=== PATIENT | female | born 1980 | race African-American/Black ===

== ENCOUNTER 2018-04-10 08:57 | Day surgery (SDC) | payer OTHER ==
[~2018-04-10 08:57] MED LIST: CARBOXYMETHYLCELLULOSE SOD 0.5% 0.4 ML DROPERETTE ONE; CEFAZOLIN 2 GM/D5W RTU 2 GM/50 ML RTUPB IV PRN; DEXAMETHASONE SOD PHOS INJ 10 MG/1 ML VIAL ONE; DEXMEDETOMIDINE INJ 80 MCG/20 ML VIAL IV ONE; FENTANYL CITRATE INJ/PF 100 MCG/2 ML AMPUL ONE; HYDROMORPHONE HCL INJ/PF 2 MG/ML AMPULE ONE; MIDAZOLAM 2 MG/2 ML INJ ONE; ONDANSETRON HCL INJ/PF 4 MG/2 ML SDV ONE; PROPOFOL INJ 200 MG/20 ML VIAL IV ONE; SUCCINYLCHOLINE CHLORIDE INJ 200 MG/10 ML VIAL ONE
[2018-04-10] MEDS ORDERED: SCOPOLAMINE HYDROBROMIDE 1.5 MG PATCH.TD72 TD PRN (10:07)
[2018-04-10] MEDS ORDERED: RINGERS SOLUTION,LACTATED 250 ML IV ONE (10:15)
[2018-04-10] MEDS ORDERED: MINERAL OIL (STERILE) 10 ML VIAL ONE (10:50)
[2018-04-10] MEDS ORDERED: BUPIVACAINE HCL 0.5%-EPI 1:200000 INJ/PF 30 ML VIAL ONE (10:51)
[2018-04-10] MEDS ORDERED: BUPIVACAINE HCL 0.5%/EPI 1:200000 INJ 1.8 ML CARTRIDGE ONE (10:51)
[2018-04-10] MEDS: OXYMETAZOLINE HCL 0.05% NASAL SPRAY 15 ML BOTTLE ONE ×2 (11:41→13:05)
[2018-04-10] MEDS ORDERED: OXYCODONE-ACETAMINOPHEN 5-325 MG TABLET ONE (15:53)
[2018-04-11] MEDS ORDERED: LACTATED RINGERS 1000 ML IV PRN (05:00)
[2018-04-11] MEDS ORDERED: LIDOCAINE 0.5% INJ-PF (5 MG/ML) 50 ML SDV SUBCUT PRN (05:00)
--- NOTE | 2018-04-12 21:35 | [facility] OPERATIVE REPORT E ---
[facility] Operative Report NAME: JUDAH QUIÑONES AGE: 38Y DATE OF SURGERY: 04/10/2018 ROOM: PREOPERATIVE DIAGNOSES: 1. SINONASAL POLYPOSIS/POLYP DISEASE. 2. CHRONIC NASAL DYSPNEA. 3. NASAL SEPTAL DEVIATION, ACQUIRED. 4. BILATERAL INFERIOR TURBINATE HYPERTROPHY. 5. BILATERAL MIDDLE TURBINATE HYPERTROPHY. 6. CHRONIC HYPOSMIA. POSTOPERATIVE DIAGNOSES: 1. SINONASAL POLYPOSIS/POLYP DISEASE. 2. CHRONIC NASAL DYSPNEA. 3. NASAL SEPTAL DEVIATION, ACQUIRED. 4. BILATERAL INFERIOR TURBINATE HYPERTROPHY. 5. BILATERAL MIDDLE TURBINATE HYPERTROPHY. 6. CHRONIC HYPOSMIA. OPERATION PERFORMED: 1. Image guidance functional endoscopic sinus surgery with bilateral transnasal rigid surgical endoscopy. 2. Bilateral transnasal passage polypectomies with tissue removal for pathology and via bilateral transnasal rigid surgical endoscopy. 3. Bilateral maxillary antrostomies with tissue removal via bilateral transnasal rigid surgical endoscopy. 4. Bilateral total ethmoidectomies (anterior and posterior) with tissue removal via bilateral transnasal rigid surgical endoscopy. 5. Bilateral transnasal/intranasal frontal sinus sinusotomies with tissue removal via bilateral transnasal rigid surgical endoscopy. 6. Bilateral middle turbinate reduction. 7. Bilateral inferior turbinate reductions using a submucous resection technique. SURGEON: CHINEDU PRECIADO D.O. ANESTHETIC: General endotracheal tube. ANESTHESIA STAFF: Chinedu Herman CRNA ESTIMATED BLOOD LOSS: 100 mL. IV FLUIDS: None. COMPLICATIONS: None. DRAINS: None. SPONGE COUNT: Verified. NEEDLE COUNT: Verified. MATERIALS FORWARDED SPECIMEN: 1. Bilateral transnasal polyp tissue. 2. Bilateral maxillary sinus polyp tissue. 3. Bilateral ethmoid sinus area polyp tissue. 4. Bilateral frontal sinus polyp tissue. FINDINGS: 1. Patient was with extensive bilateral transnasal and extensive sinus polyp disease. 2. Bilateral inferior and middle turbinate hypertrophy. 3. Right nasal septal deviation. INDICATIONS: This is a 38-year-old female who was seen and evaluated in the [facility] office. The patient had been referred for and she complained of a longstanding history of sinus polyp disease, sinusitis, allergies, chronic nasal dyspnea, and hyposmia over the years. The patient shared that she has long desired to undergo nasal and sinus surgery to more definitively address and manage her chronic nasal and sinus issues. The patient underwent clinic flexible endoscopy with extensive bilateral polyp disease noted. She also underwent CT sinus imaging with extensive sinonasal polyp disease noted bilateral. After extensive discussion with the patient, recommendations and plan was made to proceed with image guidance functional endoscopic sinus surgery, turbinate reductions, and possible septoplasty. The patient voiced an understanding of the described surgical plan, agreed to proceed, and consent was obtained. PROCEDURE: The patient was taken to the main operating room and placed on the operating room table in the supine position. Appropriate monitors were placed. Using mask and IV access, general anesthesia was induced. The patient was transorally intubated without difficulty. The patient was then positioned for image guidance sinus and nasal surgery. The patient underwent a nasal examination with injection of local anesthetic with epinephrine to establish a nasal block. Next, 2 Afrin-soaked neuro patties were placed per side. The patient was then prepped and draped in the usual fashion for sinus and nasal surgery. The image guidance system was set up and tested appropriately before beginning the case. At this point, the Afrin-soaked neuro patties were removed. With the use of 0-degree rigid transnasal bilateral surgical endoscopy and a microdebrider system at a setting of 3000 rpm, bilateral transnasal polypectomies were completed. Tissue was passed off for pathology evaluation, as noted above. Next, there were controlled fractures created in the middle turbinates with a straight Adian clamp. At this point, the middle turbinates were mobilized with the anterior portions debulked along with some of the polypoid changes that were noted. At this point, with the use of the turbinate microdebrider system at a setting of 3000 rpm and surgical sinus instruments, the bilateral maxillary antrostomies, bilateral total ethmoidectomies, and bilateral transnasal/intranasal frontal sinus sinusotomies were performed without difficulty. Tissue in these areas was also passed off for permanent pathology evaluation. At this point, the turbinate bipolar wand was used to make 2 passes in each inferior turbinate. Next, the anterior portion was entered with a pair of Marcelo scissors and tissue was elevated in a submucosal fashion with a [place] elevator. At this point, the turbinate microdebrider system at a setting of 1500 rpm was used to perform submucous resection on each side without difficulty. This was followed by use of the [place] elevator to outfracture each inferior turbinate. Next, the excessive/redundant mucosa was trimmed and the margins were reapproximated with chromic suture. At this point, the patient had a Propel frontal sinus steroid-eluting stent placed in the area of the frontal recess on each side followed by placement of an ethmoid Propel steroid-eluting stent in each ethmoid sinus surgery location. At this point, the nose was again thoroughly suctioned with adequate hemostasis noted. There was 1 Telfa *------* nasal pack with Bacitracin ointment placed per side. These were secured outside the nose with suture. At this point, the patient was returned to the anesthesia staff and was allowed to emerge from general anesthesia. The patient was extubated in the main operating room and was then transported to the post anesthesia recovery area in stable condition. There were no complications. DICTATING PHYSICIAN: CHINEDU PRECIADO D.O. [id number] PHY#: [id number] ID: [id number] JOB#: [id number] ACCT: [id number] cc:CHINEDU PRECIADO D.O. >
== END 2018-04-10 14:59 | disposition home or self-care (01) ==
LOC: SC 08:57
PROVIDERS: ATTEND Otolaryngology
DX: J33.8 Other polyp of sinus (principal); R09.81 Nasal congestion; R06.09 Other forms of dyspnea; R43.8 Other disturbances of smell and taste; J34.2 Deviated nasal septum; J34.3 Hypertrophy of nasal turbinates; J30.9 Allergic rhinitis, unspecified
CPT/HCPCS: 88305 ×2; 31256; 31255; 30140; 31276; 31237; J2250; J3490 ×5; J3010; J1170; J0330; J2405; J2704; J1100; J0690; 160